=== PATIENT | female | born 1955 | race Caucasian/White ===

== ENCOUNTER 2016-11-29 12:05 | Emergency (ER) | payer BC ==
--- NOTE | 2016-11-29 12:23 | EDM.PDOC ---
ED HPI GENERAL MEDICAL PROBLEM - General Chief Complaint: General Stated Complaint: SYNCOPE- SENT BY CLINIC Time Seen by Provider: 11/29/16 12:23 Source of Information: Reports: Patient History Limitations: Reports: No Limitations - History of Present Illness INITIAL COMMENTS - FREE TEXT/NARRATIVE: Patient is a 61-year-old female with a recent history of feeling dizzy with presyncopal episode. Patient was at work sitting at her desk when she felt her ears become full. She had the sensation she was going to pass out and thus placed her head on the desk. During this time patient did jerk a few times. Patient did not lose consciousness. Symptoms improved over a few minutes. Dizziness has persisted described as being mild in nature with a mild headache as well. States she developed a headache over the weekend to which she took ibuprofen with resolution. During this episode patient states she developed tunnel vision. Again she did not pass out and recalls all events. At no time did she develop chest pain or shortness of breath. She does have a history of atrial fibrillation and takes metoprolol tartrate 50 mg twice a day. She did take this this morning. Of note patient worked out this morning approximately 5 AM with really no significant increase in intensity. She has been pushing fluids. She did drink 4 cups of half calf coffee this morning. Denies any palpitations or irregular heartbeats with onset. In addition she denies any fever/chills, nausea/vomiting, abdominal pain, pain with urination, no stooling to the upper and lower extremity is, focal neurological deficits, slurred speech , developed a swollen, or any additional complaints. She denies any recent head trauma or changes in current medications. She has not taken any new supplementations. She has no prior history of such. She does smoke occasionally and denies any excessive alcohol use over the weekend. - Related Data Allergies Allergy/AdvReac Type Severity Reaction Status Date / Time amoxicillin Allergy Difficulty Verified 11/29/16 12:15 Breathing codeine Allergy Hyperactivi Verified 11/29/16 12:15 ty Home Meds: Home Meds Metoprolol Tartrate 50 mg PO BID 02/07/16 [History] Aspirin/Calcium Carbonate/Mag [Aspirin Buffered 325 mg Tab] 325 mg PO DAILY [History] Past Medical History Cardiovascular History: Reports: Afib Musculoskeletal History: Reports: Back Pain, Chronic - Past Surgical History Musculoskeletal Surgical History: Reports: Hip Replacement, Other (See Below) Dermatological Surgical History: Reports: Skin Biopsy Social & Family History - Tobacco Use Smoking Status *Q: Current Some Day Smoker Years of Tobacco use: 5 Packs/Tins Daily: 0.2 - Caffeine Use Caffeine Use: Reports: Coffee - Recreational Drug Use Recreational Drug Use: No ED ROS GENERAL - Review of Systems Review Of Systems: See Below Constitutional: Reports: Fatigue, Decreased Appetite. Denies: Fever, Chills, Malaise HEENT: Reports: Vision Change (tunnel vision). Denies: Ear Pain (ear fullness) , Rhinitis, Sinus Problem, Throat Pain, Throat Swelling, Vertigo Respiratory: Reports: No Symptoms Cardiovascular: Reports: Lightheadedness. Denies: Chest Pain, Dyspnea on Exertion, Palpitations, Syncope (presyncope) GI/Abdominal: Reports: Decreased Appetite. Denies: Abdominal Pain, Constipation , Diarrhea, Nausea, Vomiting : Denies: Dysuria Musculoskeletal: Reports: No Symptoms Neurological: Reports: Dizziness, Headache (mild). Denies: Confusion, Numbness , Pre-Existing Deficit, Seizure, Syncope, Tingling, Trouble Speaking, Difficulty Walking, Weakness, Change in Speech, Gait Disturbance Psychiatric: Reports: No Symptoms ED EXAM, GENERAL - Physical Exam Exam: See Below Exam Limited By: No Limitations General Appearance: Alert, WD/WN, No Apparent Distress Eye Exam: Bilateral Eye: EOMI, Nystagmus (Minimal horizontal and vertical present), PERRL Ears: Normal External Exam, Normal Canal, Hearing Grossly Normal, Other (Right TM is dull with fluid present. Abnormal Cone of Light positioning. No perforation or erythema.) Nose: Normal Inspection, Normal Mucosa, No Blood Throat/Mouth: Normal Inspection, Normal Oropharynx, Normal Voice, No Airway Compromise Head: Atraumatic, Normocephalic Neck: Normal Inspection, Supple, Non-Tender, Full Range of Motion. No: Carotid Bruit Respiratory/Chest: No Respiratory Distress, No Accessory Muscle Use, Chest Non- Tender Cardiovascular: Normal Peripheral Pulses, Regular Rate, Rhythm, No JVD, No Murmur Peripheral Pulses: 2+: Radial (R) GI/Abdominal: Normal Bowel Sounds, Soft, Non-Tender, No Organomegaly, No Distention Back Exam: Normal Inspection. No: CVA Tenderness (L), CVA Tenderness (R) Extremities: Normal Inspection, Normal Range of Motion, Non-Tender, No Pedal Edema, Normal Capillary Refill Neurological: Alert, Oriented, CN II-XII Intact, Normal Cognition, No Motor/ Sensory Deficits, Other (Droop, slurred speech, tongue deviation, uvula uvula deviation, weakness discrepancy's upper and lower extremities, or sensory/motor deficits. Cerebellar function intact: Finger-nose and rapid alternating movements) Psychiatric: Normal Affect, Normal Mood Skin Exam: Warm, Dry, Intact, Normal Color, No Rash Course - Vital Signs Last Recorded V/S: Last Vital Signs Temp 96.9 F 11/29/16 12:12 Pulse 70 11/29/16 17:52 Resp 12 11/29/16 17:52 BP 112/70 11/29/16 17:52 Pulse Ox 100 11/29/16 17:52 Orthostatic Blood Pressure [ 146/77 Standing] Orthostatic Blood Pressure [ 126/82 Sitting] Orthostatic Blood Pressure [ 133/59 Supine] - Orders/Labs/Meds Labs: Laboratory Tests 11/29/16 11/29/16 11/29/16 Range/Units 13:05 13:24 13:24 WBC 5.14 (3.98-10.04) K/mm3 RBC 4.26 (3.98-5.22) M/mm3 Hgb 13.3 (11.2-15.7) gm/L Hct 39.0 (34.1-44.9) % MCV 91.5 (79.4-94.8) fl MCH 31.2 (25.6-32.2) pg MCHC 34.1 (32.2-35.5) g/dl RDW Std Deviation 45.2 (36.4-46.3) fL Plt Count 167 L (182-369) K/mm3 MPV 10.5 (9.4-12.3) fl Neut % (Auto) 57.0 (34.0-71.1) % Lymph % (Auto) 25.5 (19.3-51.7) % [place] % (Auto) 13.2 H (4.7-12.5) % Eos % (Auto) 3.1 (0.7-5.8) Baso % (Auto) 0.8 (0.1-1.2) % Neut # (Auto) 2.93 (1.56-6.13) K/mm3 Lymph # (Auto) 1.31 (1.18-3.74) K/mm3 [place] # (Auto) 0.68 H (0.24-0.36) K/mm3 Eos # (Auto) 0.16 (0.04-0.36) K/mm3 Baso # (Auto) 0.04 (0.01-0.08) K/mm3 PT 10.7 (8.0-13.0) SECONDS INR 0.98 APTT (22-36) SECONDS Sodium (136-145) mEq/L Potassium (3.5-5.1) mEq/L Chloride (98-107) mEq/L Carbon Dioxide (21-32) mEq/L Anion Gap (5-15) BUN (7-18) mg/dL Creatinine (0.55-1.02) mg/dL Est Cr Clr Drug Dosing Estimated GFR (MDRD) (>60) mL/min BUN/Creatinine Ratio (14-18) Glucose (74-106) mg/dL Calcium (8.5-10.1) mg/dL Total Bilirubin (0.2-1.0) mg/dL AST (15-37) U/L ALT (14-59) U/L Alkaline Phosphatase (46-116) U/L Troponin I (0.00-0.056) ng/mL Total Protein (6.4-8.2) g/dl Albumin (3.4-5.0) g/dl Globulin gm/dL Albumin/Globulin Ratio (1-2) TSH 3rd Generation (0.358-3.74) uIU/mL Urine Color Yellow (Yellow) Urine Appearance Clear (Clear) Urine pH 6.0 (5.0-8.0) Ur Specific [place] 1.010 (1.005-1.030) Urine Protein Negative (Negative) Urine Glucose (UA) Negative (Negative) Urine Ketones Negative (Negative) Urine Occult Blood Negative (Negative) Urine Nitrite Negative (Negative) Urine Bilirubin Negative (Negative) Urine Urobilinogen 0.2 (0.2-1.0) Ur Leukocyte Esterase Trace H (Negative) Urine RBC Not seen (0-5) /hpf Urine WBC 0-5 (0-5) /hpf Ur Epithelial Cells 0-5 (0-5) /hpf Ur Squamous Epith Cells 0-5 (0-5) /hpf Urine Bacteria Not seen (FEW) /hpf Urine Mucus Not seen (FEW) /hpf 11/29/16 11/29/16 11/29/16 Range/Units 13:24 13:24 16:24 WBC (3.98-10.04) K/mm3 RBC (3.98-5.22) M/mm3 Hgb (11.2-15.7) gm/L Hct (34.1-44.9) % MCV (79.4-94.8) fl MCH (25.6-32.2) pg MCHC (32.2-35.5) g/dl RDW Std Deviation (36.4-46.3) fL Plt Count (182-369) K/mm3 MPV (9.4-12.3) fl Neut % (Auto) (34.0-71.1) % Lymph % (Auto) (19.3-51.7) % [place] % (Auto) (4.7-12.5) % Eos % (Auto) (0.7-5.8) Baso % (Auto) (0.1-1.2) % Neut # (Auto) (1.56-6.13) K/mm3 Lymph # (Auto) (1.18-3.74) K/mm3 [place] # (Auto) (0.24-0.36) K/mm3 Eos # (Auto) (0.04-0.36) K/mm3 Baso # (Auto) (0.01-0.08) K/mm3 PT (8.0-13.0) SECONDS INR APTT 24 (22-36) SECONDS Sodium 137 (136-145) mEq/L Potassium 4.2 (3.5-5.1) mEq/L Chloride 103 (98-107) mEq/L Carbon Dioxide 25 (21-32) mEq/L Anion Gap 13.2 (5-15) BUN 19 H (7-18) mg/dL Creatinine 0.9 (0.55-1.02) mg/dL Est Cr Clr Drug Dosing TNP Estimated GFR (MDRD) > 60 (>60) mL/min BUN/Creatinine Ratio 21.1 H (14-18) Glucose 103 (74-106) mg/dL Calcium 9.0 (8.5-10.1) mg/dL Total Bilirubin 0.3 (0.2-1.0) mg/dL AST 18 (15-37) U/L ALT 25 (14-59) U/L Alkaline Phosphatase 73 (46-116) U/L Troponin I < 0.017 0.018 (0.00-0.056) ng/mL Total Protein 7.1 (6.4-8.2) g/dl Albumin 4.0 (3.4-5.0) g/dl Globulin 3.1 gm/dL Albumin/Globulin Ratio 1.3 (1-2) TSH 3rd Generation 1.734 (0.358-3.74) uIU/mL Urine Color (Yellow) Urine Appearance (Clear) Urine pH (5.0-8.0) Ur Specific [place] (1.005-1.030) Urine Protein (Negative) Urine Glucose (UA) (Negative) Urine Ketones (Negative) Urine Occult Blood (Negative) Urine Nitrite (Negative) Urine Bilirubin (Negative) Urine Urobilinogen (0.2-1.0) Ur Leukocyte Esterase (Negative) Urine RBC (0-5) /hpf Urine WBC (0-5) /hpf Ur Epithelial Cells (0-5) /hpf Ur Squamous Epith Cells (0-5) /hpf Urine Bacteria (FEW) /hpf Urine Mucus (FEW) /hpf Meds: Medications Discontinued Medications Generic Name Dose Route Start Last Admin Trade Name Freq PRN Reason Stop Dose Admin Sodium Chloride 1,000 mls @ 999 mls/hr 11/29/16 12:45 11/29/16 13:14 Normal Saline IV 11/29/16 13:45 999 mls/hr ONETIME ONE Administration Lorazepam 0.5 mg 11/29/16 12:41 11/29/16 13:16 Ativan IVPUSH 11/29/16 12:42 0.5 mg ONETIME ONE Administration Sodium Chloride 10 ml 11/29/16 12:41 11/29/16 13:15 Saline Flush FLUSH 10 ml ASDIRECTED PRN Administration Keep Vein Open - Re-Assessments/Exams Free Text/Narrative Re-Assessment/Exam: Peripheral IV will establish with initial labs and studies include CBC, chem 14 , PTT/INR, PTT, troponin, TSH, UA, EKG, CT of the head w/o, and orthostatic vitals. Orthostatic vitals were negative. EKG revealed a sinus rhythm at a rate of [address] changes noted. 11/29/16 13:44 CT of the head revealed no acute intracranial abnormalities. 11/29/16 14:23 Labs reviewed: CBC, coags, chemistry panel were essentially normal. Troponin within normal limits. UA negative for infectious process. 1428 Reassessment, patient states dizziness has resolved. She does have intermittent headache described as being mild. Occasionally sees double with staring. This resolved with blinking. Otherwise no vision changes. Patient sat up with no dizziness. She states she still feels like a wet noodle. She is concerned this is related to her heart. Will obtain a 3 hour troponin. She is hungry menu has been provided for patient to order something to eat. 11/29/16 17:09 second troponin is negative. Patient has been up and about and feeling okay at this time. Dizziness has resolved. We'll discharge patient home with instructions as documented. Departure - Departure Time of Disposition: 17:29 Disposition: Home, Self-Care 01 Clinical Impression: Pre-syncope - Discharge Information Instructions: Near-Syncope Referrals: Etta Mcclure MD [Primary Care Provider] - Forms: ED Department Discharge Additional Instructions: As discussed unclear etiology current complaint. This may have precipitated by recent exercise this morning and being dehydrated, vagal episode, fluid to the right ear, and/or an arrhythmia such as atrial fibrillation. Symptoms have completely resolved with administration of fluids and Ativan while in the ED. EKG, head CT, and labs did not reveal any concerning findings. Follow-up with your PCP in the next week for reevaluation. Return to the ED for any new or worsening symptoms as discussed.
[2016-11-29] MEDS ORDERED: LORazepam 2 MG/ML MDV IVPUSH ONE (12:41)
[2016-11-29] MEDS ORDERED: Sodium Chloride 0.9% 10 ML Syringe FLUSH PRN (12:41)
[2016-11-29] MEDS ORDERED: Sodium Chloride 0.9% 1,000 ML IV ONE (12:45)
--- NOTE | 2016-11-29 13:12 | CT ---
Head CT Technique: Multiple axial sections through the brain were obtained. Intravenous contrast was not utilized. Comparison: Previous head CT exam of 06/23/10. Findings: Ventricles along with basal cisterns and sulci over the convexities are within normal limits for the patient's age. No abnormal parenchymal densities are seen. No evidence of intracranial hemorrhage. No midline shift or mass effect is seen. Bone window settings were reviewed which shows the visualized sinuses to appear clear. Visualized mastoid sinuses and middle ear cavities are clear. No acute calvarial abnormality is appreciated. Impression: 1. No acute intracranial abnormality is identified on noncontrast head CT study. Diagnostic code #1
[2016-11-29 17:55] VITALS: BP 112/70
== END 2016-11-29 17:55 | disposition home or self-care (01) ==
LOC: JD.ED 12:05
DX: R55 Syncope and collapse (principal); I48.91 Unspecified atrial fibrillation; F17.210 Nicotine dependence, cigarettes, uncomplicated; Z79.82 Long term (current) use of aspirin; Z88.1 Allergy status to other antibiotic agents; Z88.5 Allergy status to narcotic agent; Z96.649 Presence of unspecified artificial hip joint
CPT/HCPCS: 36415; 70450; 80053; 81001; 84443; 84484; 85025; 85610; 85730; 93005; 96361; 96374; 99285; J2060; J7040; J7050; 99284